=== PATIENT | female | born 1945 | race Caucasian/White ===

== ENCOUNTER 2019-11-03 14:36 | Day surgery (SDC) | payer MEDICARE, BC ==
[2019-10-29 12:18] LABS: BASOPHILS % (AUTO) 0.8 % (0-1); EOSINOPHILS # (AUTO) 0.1 X10'3 (0-0.9); HEMATOCRIT 44.3 % (35.0-45.0); HEMOGLOBIN 14.7 g/dl (12.0-16.0); LYMPHOCYTES # (AUTO) 1.1 X10'3 (1.1-4.8); LYMPHOCYTES % (AUTO) 17.2 % (21-51); MEAN CORPUSCULAR HEMOGLOBIN 32.7 PG (27.0-31.0); MEAN CORPUSCULAR HGB CONC 33.3 g/dL (33.0-36.5); MEAN CORPUSCULAR VOLUME 98.4 FL (78-98); MEAN PLATELET VOLUME 8.6 FL (7.4-10.4); MONOCYTES # (AUTO) 0.5 X10'3 (0-0.9); MONOCYTES % (AUTO) 7.3 % (2-12); NEUTROPHILS # (AUTO) 4.6 X10'3 (1.8-7.7); NEUTROPHILS % (AUTO) 72.7 % (42-75); PLATELET COUNT 170 X10'3 (140-440); RED CELL DISTRIBUTION WIDTH 14.3 % (11.5-14.5); WHITE BLOOD COUNT 6.3 X10'3 (4.5-11.0)
[2019-10-29 12:22] LABS: ALBUMIN 3.5 G/DL (3.4-5.0); ANION GAP 12 (8-16); BLOOD UREA NITROGEN 33 MG/DL (7-18); BUN/CREATININE RATIO 21.4 (6.6-38.0); CALCIUM 9.2 MG/DL (8.5-10.1); CHLORIDE 105 MMOL/L (99-107); CREATININE 1.54 MG/DL (0.40-0.90); GLUCOSE 112 MG/DL (70-104); POTASSIUM 3.9 MMOL/L (3.5-5.1); SODIUM 142 MMOL/L (135-145); TOTAL CARBON DIOXIDE 25.2 MMOL/L (24-32); eGFR 33 ML/MIN
[2019-10-29 12:27] LABS: PARTIAL THROMBOPLASTIN TIME 31 SECONDS (22-32)
[~2019-11-03] VITALS: Ht 165.1 cm; Wt 59.5 kg
[2019-11-03] VITALS (10 sets, daily range): BP systolic 93–148; BP diastolic 46–81
[~2019-11-03 14:36] MED LIST: ACET325C6 PO; AMIO200T61 PO; COR3.125T PO; FURO-150 PO; LISI2.5T2 PO; POLY15DR66 EACHEYE; RIVA20TA PO
[2019-11-03] MEDS ORDERED: normal saline 1,000 ML IV SCH (15:00)
[2019-11-03] MEDS ORDERED: LORazepam 0.5 MG tablet PO PRN (15:00)
[2019-11-03] MEDS ORDERED: diphenhydrAMINE 25mg capsule PO PRN (15:00)
[2019-11-03] MEDS ORDERED: CARV-49 PO (15:09)
[2019-11-03] MEDS ORDERED: FURO-150 PO (15:09)
[2019-11-03] MEDS ORDERED: LISI2.5T2 PO (15:09)
[2019-11-03] MEDS ORDERED: AMIO200T62 PO (15:09)
[2019-11-03] MEDS ORDERED: fentaNYL/PF 50MCG/1 ML 2ML syringe ONE (16:41)
[2019-11-03] MEDS ORDERED: midazolam 2 mg/2 ml injection ONE (16:41)
[2019-11-03] MEDS ORDERED: verapamil 2.5 mg/ml inj IV ONE (16:41)
[2019-11-03] MEDS ORDERED: nitroGLYCERIN-Tridil 50MG/D5W 250 ML IV ONE (16:42)
[2019-11-03] MEDS ORDERED: iohexol 350MG/ML 100ml bottle IV ONE (16:42)
[2019-11-03] MEDS ORDERED: heparin 1,000unit/ml 10ml vial 10 ML ONE (16:42)
[2019-11-03] MEDS ORDERED: LIDOcaine 1% (10mg/ml)w/preservative injection 20ml MDV ONE (16:42)
[2019-11-03] MEDS ORDERED: HYDROcodone/acetaminophen 5mg/325mg tablet PO PRN (18:05)
[2019-11-03] MEDS ORDERED: nitroGLYCERIN 0.4mg SUBLingual tab SL PRN (18:05)
[2019-11-03] MEDS ORDERED: ondansetron/PF 4mg/2ml inj IV PRN (18:05)
[2019-11-03] MEDS ORDERED: proCHLORperazine 10 MG/2 ml inj IV PRN (18:05)
[2019-11-03] MEDS ORDERED: OXAZEpam 15mg capsule PO PRN (18:05)
[2019-11-03] MEDS ORDERED: HYDROcodone/acetaminophen 10/325mg tab PO PRN (18:05)
== END 2019-11-03 20:00 | disposition home or self-care (01) ==
LOC: SSTAY O 14:36
PROVIDERS: ATTEND Internal Medicine Interventional Cardiology
DX: R94.39 Abnormal result of other cardiovascular function study (principal); I25.10 Atherosclerotic heart disease of native coronary artery without angina pectoris; I11.0 Hypertensive heart disease with heart failure; I50.22 Chronic systolic (congestive) heart failure; E11.9 Type 2 diabetes mellitus without complications; I48.0 Paroxysmal atrial fibrillation; I27.20 Pulmonary hypertension, unspecified; I08.0 Rheumatic disorders of both mitral and aortic valves; Z94.84 Stem cells transplant status; Z87.891 Personal history of nicotine dependence; Z85.72 Personal history of non-Hodgkin lymphomas; Z79.01 Long term (current) use of anticoagulants; Z88.8 Allergy status to other drugs, medicaments and biological substances; Z88.2 Allergy status to sulfonamides
CPT/HCPCS: 36415; 80048; 85025; 85610; 85730; 93005; 93458; 99152; 99153; C1769; C1894; J1644; J2001; J2250; J3010; J7030; Q0163; Q9967; A4620; A5120; J3490

== ENCOUNTER 2021-07-07 06:48 | Emergency (ER) | payer MEDICARE, BC ==
[~2021-07-07] VITALS: Ht 165.1 cm; Wt 55.0 kg
[~2021-07-07 06:48] MED LIST changes: -AMIO200T61 PO; +AMIO200T62 PO; +CARV-49 PO; -COR3.125T PO; +LISI2.5T14 PO; -LISI2.5T2 PO; -POLY15DR66 EACHEYE
[2021-07-07 08:08] LABS: BASOPHILS % (AUTO) 0.1 % (0-1); EOSINOPHILS % (AUTO) 0.7 % (0-6); HEMATOCRIT 41.5 % (35.0-45.0); LYMPHOCYTES # (AUTO) 0.8 X10'3 (1.1-4.8); MEAN CORPUSCULAR HEMOGLOBIN 34.1 PG (27.0-31.0); MEAN CORPUSCULAR HGB CONC 33.6 g/dL (33.0-36.5); MEAN CORPUSCULAR VOLUME 101.3 FL (78-98); MEAN PLATELET VOLUME 8.4 FL (7.4-10.4); MONOCYTES # (AUTO) 0.5 X10'3 (0-0.9); MONOCYTES % (AUTO) 9.3 % (2-12); NEUTROPHILS # (AUTO) 3.8 X10'3 (1.8-7.7); NEUTROPHILS % (AUTO) 74.9 % (42-75); PLATELET COUNT 208 X10'3 (140-440); RED CELL DISTRIBUTION WIDTH 13.2 % (11.5-14.5); WHITE BLOOD COUNT 5.1 X10'3 (4.5-11.0)
[2021-07-07] MEDS ORDERED: iohexol 300mg/ml 100ml inj. ONE (08:10)
[2021-07-07 08:26] LABS: ALANINE AMINOTRANSFERASE 402 U/L (12-78); ALBUMIN 3.6 G/DL (3.4-5.0); ALBUMIN/GLOBULIN RATIO 1.4 (1.1-1.5); ALKALINE PHOSPHATASE 103 IU/L (46-116); ANION GAP 10 (8-16); ASPARTATE AMINO TRANSFERASE 98 U/L (10-37); BILIRUBIN,TOTAL 0.8 MG/DL (0.1-1.0); BLOOD UREA NITROGEN 16 MG/DL (7-18); BUN/CREATININE RATIO 12.1 (6.6-38.0); CALCIUM 8.7 MG/DL (8.5-10.1); CHLORIDE 108 MMOL/L (99-107); CREATININE 1.32 MG/DL (0.40-0.90); GLUCOSE 101 MG/DL (70-104); LIPASE 55 U/L (73-393); POTASSIUM 3.4 MMOL/L (3.5-5.1); SODIUM 143 MMOL/L (135-145); TOTAL CARBON DIOXIDE 24.9 MMOL/L (24-32); TOTAL PROTEIN 6.2 G/DL (6.4-8.2); eGFR 39 ML/MIN
[2021-07-07 11:08] LABS: CLARITY,URINE CLEAR (Clear); COLOR,URINE YELLOW (Yellow); GLUCOSE, URINE NEGATIVE (Neg); KETONES,URINE NEGATIVE (Neg); LEUKOCYTE ESTERASE ,URINE NEGATIVE (Neg); NITRITES, URINE NEGATIVE (Neg); OCCULT BLOOD,URINE NEGATIVE (Neg); PROTEIN,URINE TRACE mg/dl (Neg); UROBILINOGEN,URINE 0.2 E.U/dL (0.2-1.0)
[2021-07-07 11:09] LABS: UA COLLECTION TYPE CLN CATCH MIDSTREAM
[2021-07-07 11:15] LABS: HYALINE CASTS 0-3 /LPF (NEGATIVE); MUCUS STRANDS FEW /LPF (Neg); SQUAMOUS EPITHELIAL CELL,UR FEW /LPF (FEW)
[2021-07-07 11:16] LABS: BACTERIA,URINE FEW /HPF (Neg); RBC,URINE 0-2 /HPF (0-2); WBC,URINE 0-4 /HPF (0-4)
--- NOTE | 2021-07-07 11:56 | NUR ---
Pt straight cath with 300cc return of yellow urine
[2021-07-07] MEDS ORDERED: DIPH-186 PO (12:44)
[2021-07-07 13:35] VITALS: BP 155/76
== END 2021-07-07 13:37 | disposition home or self-care (01) ==
LOC: ER 06:48
DX: R19.7 Diarrhea, unspecified (principal); R74.01 Elevation of levels of liver transaminase levels; R11.2 Nausea with vomiting, unspecified; I48.91 Unspecified atrial fibrillation; I11.0 Hypertensive heart disease with heart failure; I50.9 Heart failure, unspecified; Z72.89 Other problems related to lifestyle; Z88.8 Allergy status to other drugs, medicaments and biological substances; Z88.1 Allergy status to other antibiotic agents; Z79.899 Other long term (current) drug therapy
CPT/HCPCS: 36415; 74177; 80053; 81001; 83690; 83880; 85025; 99285; Q9967

== ENCOUNTER 2022-07-22 11:29 | Emergency (ER) | payer MEDICARE, BC ==
[~2022-07-22] VITALS: Ht 165.1 cm; Wt 56.0 kg
[~2022-07-22 11:29] MED LIST changes: +DIPH-186 PO
[2022-07-22] MEDS ORDERED: HYDROcodone/acetaminophen 5mg/325mg tablet PO ONE (13:25)
[2022-07-22] MEDS ORDERED: HYDR-3965 PO (13:27)
[2022-07-22 14:12] VITALS: BP 122/53
== END 2022-07-22 14:07 | disposition home or self-care (01) ==
LOC: ER 11:30
DX: M25.512 Pain in left shoulder (principal); I11.9 Hypertensive heart disease without heart failure; Z88.8 Allergy status to other drugs, medicaments and biological substances; Z88.2 Allergy status to sulfonamides; Z79.899 Other long term (current) drug therapy; Z79.1 Long term (current) use of non-steroidal anti-inflammatories (NSAID); Z79.2 Long term (current) use of antibiotics
CPT/HCPCS: 72170; 72192; 99284